=== PATIENT | male | born 1935 | race Caucasian/White ===

== ENCOUNTER 2020-12-25 09:44 | Outpatient (CLI) | payer MEDICARE, BC ==
[2020-12-25 11:33] LABS: Hemoglobin 14.5 g/dL (13.5-17.5); Mean Corpuscular HGB CONC 34.4 g/dL (32.0-36.0); Mean Corpuscular Hemoglobin 32.9 pg (27.0-33.0); Mean Corpuscular Volume 95.5 fl (81.2-95.1); Mean Platelet Volume 9.8 fl (7.4-10.4); Platelet Count 185 10x3/uL (150-450); RBC Distribution Width 12.7 % (11.5-14.5); Red Blood Cell (RBC) Count 4.41 10x6/uL (4.32-5.72); White Blood Cell (WBC) Count 6.8 10x3/uL (3.5-10.5)
[2020-12-25 12:08] LABS: Anion Gap 14 mmol/L (10-20); BUN (Urea Nitrogen) 14 mg/dL (8.4-25.7); Calc. Creatinine Clearance 0 mL/min (70-130); Calcium 9.1 mg/dL (7.8-10.44); Carbon Dioxide 24 mmol/L (23-31); Chloride 102 mmol/L (98-107); Glucose 100 mg/dL (83-110); Potassium 4.6 mmol/L (3.5-5.1); Sodium 135 mmol/L (136-145)
[2020-12-25 12:19] LABS: PTT 26.7 sec (22.0-33.0); Prothrombin Time 11.1 sec (9.5-12.1)
[2020-12-25 23:40] LABS: SARS-CoV-2 PCR by NAA Not Detected (NotDetected)
== END 2020-12-25 09:45 | disposition home or self-care (01) ==
LOC: LABBT 09:44
PROVIDERS: ATTEND Neurological Surgery
DX: Z01.812 Encounter for preprocedural laboratory examination (principal); M43.16 Spondylolisthesis, lumbar region; M43.17 Spondylolisthesis, lumbosacral region; M48.061 Spinal stenosis, lumbar region without neurogenic claudication; M48.07 Spinal stenosis, lumbosacral region; Z20.822 Contact with and (suspected) exposure to COVID-19
CPT/HCPCS: 80048; 85027; 85610; 85730; U0003; U0005

== ENCOUNTER 2020-12-30 05:36 | Day surgery (SDC) | payer MEDICARE, BC ==
[2020-12-30] MEDS ORDERED: Fentanyl 250 MCG/5 ML VIAL ONE (06:07)
[2020-12-30] MEDS ORDERED: Neomycin-Polymyxin 1 ML AMP ONE (06:15)
[2020-12-30] MEDS ORDERED: Bupivacaine PF 0.5% 30 ML VIAL ONE (06:15)
[2020-12-30] MEDS ORDERED: Thrombin 5000 UNITS/5 ML VIAL ONE (06:15)
[2020-12-30] MEDS ORDERED: EPINEPHrine 1 MG/ML AMP ONE (06:15)
[2020-12-30] MEDS ORDERED: Acetaminophen 325 MG TAB PO PRN (06:42)
[2020-12-30] MEDS ORDERED: Milk Of Magnesia 30 ML UDCUP PO PRN (06:42)
[2020-12-30] MEDS ORDERED: Bisacodyl 10 MG SUPP PR PRN (06:42)
[2020-12-30] MEDS ORDERED: Acetaminophen/Codeine 30-300mg Tablet PO PRN (06:42)
[2020-12-30] MEDS ORDERED: Ondansetron PF 4 MG/2 ML Vial IVP PRN (06:42)
[2020-12-30] MEDS ORDERED: Promethazine 25 MG TAB PO PRN (06:42)
[2020-12-30] MEDS ORDERED: HYDROcodone/Acetaminophen 7.5/325 mg Tablet PO PRN (06:42)
[2020-12-30] MEDS ORDERED: tiZANidine HCl 4 MG TAB PO PRN (06:42)
[2020-12-30] MEDS ORDERED: diphenhydrAMINE 25 MG CAP PO PRN (06:42)
[2020-12-30] MEDS ORDERED: PHENYLEPHRINE-NS 100 MCG/ML 10 ML SYRINGE ONE (07:08)
[2020-12-30] MEDS ORDERED: Lidocaine 1% PF 5 ML VIAL ONE (07:08)
[2020-12-30] MEDS ORDERED: Vecuronium 10 MG VIAL ONE (07:08)
[2020-12-30] MEDS ORDERED: Rocuronium Bromide 10 MG/ML (10ML VIAL) ONE (07:08)
[2020-12-30] MEDS ORDERED: PROPOFOL 200 MG/20 ML VIAL ONE (07:08)
[2020-12-30] MEDS ORDERED: Ondansetron PF 4 MG/2 ML Vial ONE (07:08)
[2020-12-30] MEDS ORDERED: Dexamethasone 20 MG/5 ML VIAL ONE (07:08)
[2020-12-30] MEDS ORDERED: ePHEDrine 50 MG/ML VIAL ONE (07:08)
[2020-12-30] MEDS: Atorvastatin Calcium 20 MG TAB PO SCH (09:00)
[2020-12-30] MEDS: Tamsulosin HCl 0.4 MG CAP PO SCH ×2 (09:00→21:54)
[2020-12-30] MEDS: CEFAZOLIN 2 GM in Premix Bag 1 BAG IVPB SCH ×2 (14:00→21:49)
[2020-12-30] MEDS ORDERED: SUGAMMADEX SODIUM 200 MG/2 ML VIAL ONE (14:05)
[2020-12-30] MEDS ORDERED: Promethazine HCl 25 MG/ML VIAL IVPB PRN (14:44)
[2020-12-30] MEDS ORDERED: Promethazine HCl 25 MG/ML VIAL IM PRN (14:44)
[2020-12-30] MEDS ORDERED: HYDROmorphone 2 MG/ML VIAL SLOW IVP PRN (14:44)
[2020-12-30] MEDS ORDERED: Ondansetron HCl/PF 4 MG/2 ML Vial IVP PRN (14:44)
[2020-12-30] MEDS ORDERED: PACU-Morphine 4MG/ML VIAL SLOW IVP PRN (14:44)
[2020-12-30] MEDS ORDERED: Morphine Sulfate 2 MG/ML SYRINGE SLOW IVP PRN (14:44)
[2020-12-30] MEDS ORDERED: Fentanyl 100 MCG/2 ML VIAL ONE (15:48)
[2020-12-30] MEDS ORDERED: HYDROmorphone 2 MG/ML VIAL ONE (16:15)
[2020-12-30] MEDS: Sodium Chloride 0.9% 1,000 ML IV SCH ×2 (18:37→21:53)
[2020-12-30] MEDS: Morphine 2 MG/ML VIAL SLOW IVP PRN ×2 (19:18→21:46)
[2020-12-30 20:40] VITALS: BMI 28.5
[2020-12-30] MEDS ORDERED: Latanoprost 0.005% Ophth Soln 2.5 ml Bottle EA EYE SCH (21:00)
[2020-12-30] MEDS: Timolol 0.5% Ophth Soln 5 ml Bottle EA EYE SCH (21:37)
[2020-12-30] MEDS: Brimonidine Tartrate 0.2% Ophth Soln 5 ml Bottle EA EYE SCH (21:37)
[2020-12-31] MEDS: Morphine 2 MG/ML VIAL SLOW IVP PRN (01:54)
[2020-12-31] MEDS: Tamsulosin HCl 0.4 MG CAP PO SCH (09:57)
[2020-12-31] MEDS: Atorvastatin Calcium 20 MG TAB PO SCH (09:57)
[2020-12-31] MEDS: Brimonidine Tartrate 0.2% Ophth Soln 5 ml Bottle EA EYE SCH (09:58)
[2020-12-31] MEDS: Sodium Chloride 0.9% 1,000 ML IV SCH (09:59)
[2020-12-31] MEDS: Timolol 0.5% Ophth Soln 5 ml Bottle EA EYE SCH (09:59)
[2020-12-31] MEDS: HYDROcodone/Acetaminophen 10/325 mg Tablet PO PRN ×2 (10:00→17:27)
[2020-12-31 15:39] VITALS: BP 121/71; TEMP 98
== END 2020-12-31 21:00 ==
LOC: SDC 05:36 → SURG B 06:46 → SDC 12-31 21:00
PROVIDERS: ATTEND Neurological Surgery
PROC: 0SG00AJ Fusion of Lumbar Vertebral Joint with Interbody Fusion Device, Posterior Approach, Anterior Column, Open Approach (ICD-10-PCS; principal; 2020-12-30)
PROC: 0SG30AJ Fusion of Lumbosacral Joint with Interbody Fusion Device, Posterior Approach, Anterior Column, Open Approach (ICD-10-PCS; 2020-12-30)
DX: M43.19 Spondylolisthesis, multiple sites in spine (principal); M48.062 Spinal stenosis, lumbar region with neurogenic claudication; E78.5 Hyperlipidemia, unspecified; I25.10 Atherosclerotic heart disease of native coronary artery without angina pectoris; I25.2 Old myocardial infarction; N40.0 Benign prostatic hyperplasia without lower urinary tract symptoms; G89.29 Other chronic pain; I51.9 Heart disease, unspecified; Z23 Encounter for immunization; Z87.891 Personal history of nicotine dependence; Z79.899 Other long term (current) drug therapy; Z95.1 Presence of aortocoronary bypass graft
CPT/HCPCS: 20930; 20936; 22633; 22634; 22842; 22853 ×2; 76000; 90732; 97116; 97139 ×2; C1713 ×4; C1768; G0009; J2270 ×2; 90471; J0171; J0690; J1100; J1170; J2405; J2704; J3010; J3370; J3490; J7050; S0020

== ENCOUNTER 2021-01-14 09:55 | Outpatient (CLI) | payer MEDICARE, BC | END 2021-01-14 09:56 | disposition home or self-care (01) | LOC: TBSIIMAG 09:55 | PROVIDERS: ATTEND Neurological Surgery | DX: M48.061 Spinal stenosis, lumbar region without neurogenic claudication (principal); M47.816 Spondylosis without myelopathy or radiculopathy, lumbar region; Z98.890 Other specified postprocedural states | CPT/HCPCS: 72100 ==

== ENCOUNTER 2023-10-28 15:56 | Outpatient (CLI) | payer MEDICARE, BC ==
[2023-10-28 17:11] LABS: Hematocrit 41.4 % (38.8-50.0); Hemoglobin 14.7 g/dL (13.5-17.5); Mean Corpuscular HGB CONC 35.5 g/dL (32.0-36.0); Mean Corpuscular Hemoglobin 33.7 pg (27.0-33.0); Mean Platelet Volume 9.8 fL (7.4-10.4); Platelet Count 185 10x3/uL (150-450); Red Blood Cell (RBC) Count 4.36 10x6/uL (4.32-5.72); White Blood Cell (WBC) Count 7.6 10x3/uL (3.5-10.5)
[2023-10-28 17:31] LABS: INR-International Normal Ratio 1.1; PTT 26.9 sec (22.0-33.0); Prothrombin Time 11.4 sec (9.5-12.1)
[2023-10-28 17:51] LABS: Anion Gap 13 mmol/L (10-20); BUN (Urea Nitrogen) 15 mg/dL (8.4-25.7); Calc. Creatinine Clearance 0 mL/min (70-130); Calcium 9.2 mg/dL (7.8-10.44); Carbon Dioxide 24 mmol/L (23-31); Chloride 103 mmol/L (98-107); Estimated GFR 79; Glucose 95 mg/dL (83-110); Potassium 4.3 mmol/L (3.5-5.1); Sodium 136 mmol/L (136-145)
== END 2023-10-28 15:57 | disposition home or self-care (01) ==
LOC: LABBT 15:56
PROVIDERS: ATTEND Neurological Surgery
DX: Z01.812 Encounter for preprocedural laboratory examination (principal); M50.01 Cervical disc disorder with myelopathy, high cervical region
CPT/HCPCS: 80048; 85027; 85610; 85730

== ENCOUNTER 2023-11-01 05:34 | Day surgery (SDC) | payer MEDICARE, BC ==
[2023-10-31 12:06] VITALS: BMI 26.5
[2023-11-01] MEDS ORDERED: Vancomycin 1 GM VIAL ONE (06:11)
[2023-11-01] MEDS ORDERED: Thrombin 5000 UNITS/5 ML VIAL ONE (06:12)
[2023-11-01] MEDS ORDERED: CEFAZOLIN 2 GM VIAL ONE (06:18)
[2023-11-01] MEDS ORDERED: Sodium Chloride 0.9% 100 ML ONE (06:18)
[2023-11-01] MEDS ORDERED: PROPOFOL 20 ML ONE (06:29)
[2023-11-01] MEDS ORDERED: Rocuronium Bromide 10 MG/ML (10ML VIAL) ONE (06:30)
[2023-11-01] MEDS ORDERED: fentaNYL PF 100 MCG/2 ML SYRINGE ONE (06:30)
[2023-11-01] MEDS ORDERED: Lidocaine 1% PF 5 ML VIAL ONE (06:30)
[2023-11-01] MEDS ORDERED: Dexamethasone 4 mg/ml Vial ONE (07:22)
[2023-11-01] MEDS ORDERED: Ondansetron PF 4 MG/2 ML Vial ONE (07:22)
[2023-11-01] MEDS ORDERED: ePHEDrine Sulfate 50 MG/10 ML VIAL ONE (07:55)
[2023-11-01] MEDS ORDERED: fentaNYL 50 mcg/mL 1 mL Vial ONE ×4 (08:53→10:47)
[2023-11-01] MEDS ORDERED: SUGAMMADEX SODIUM 200 MG/2 ML VIAL ONE (08:58)
[2023-11-01] MEDS ORDERED: Tamsulosin HCl 0.4 MG CAP ONE (10:15)
== END 2023-11-01 14:22 | disposition home or self-care (01) ==
LOC: SDC 05:34
PROVIDERS: ATTEND Neurological Surgery
PROC: 0RG10A0 Fusion of Cervical Vertebral Joint with Interbody Fusion Device, Anterior Approach, Anterior Column, Open Approach (ICD-10-PCS; principal; 2023-11-01)
DX: M50.01 Cervical disc disorder with myelopathy, high cervical region (principal); G95.20 Unspecified cord compression; I25.10 Atherosclerotic heart disease of native coronary artery without angina pectoris; I10 Essential (primary) hypertension; E78.5 Hyperlipidemia, unspecified; Z95.1 Presence of aortocoronary bypass graft; Z90.49 Acquired absence of other specified parts of digestive tract; Z95.818 Presence of other cardiac implants and grafts
CPT/HCPCS: 20930; 20936; 22551; 22845; 22853; J1100; J2405; J2704; J3010; J3370; J3490; C1713